=== PATIENT | female | born 1985 | race Caucasian/White ===

== ENCOUNTER 2018-07-12 15:46 | Inpatient (IN) | payer MEDICAID ==
[~2018-07-12] VITALS: Ht 160 cm; Wt 66.7 kg
[~2018-07-12 15:46] MED LIST: ARIP10TA8 PO; BUSP10TA23 PO; DSS100 PO; LIDO700A15 TD; MACR100 PO; MIRT30 PO; OMEP20 PO; TRAZ-219 PO
[2018-07-12] MEDS ORDERED: PROMETHAZINE HCL 25 MG TABLET PO ONE (16:15)
[2018-07-12 16:19] LABS: BASOPHILS % (AUTO) 0.6 % (0.0-2.0); EOSINOPHILS % (AUTO) 1.9 % (1.0-6.0); HEMATOCRIT 40.5 % (36-46); HEMOGLOBIN 14.1 g/dL (12.0-16.0); LYMPHOCYTES # (AUTO) 2.1 K/uL (1.0-4.8); LYMPHOCYTES % (AUTO) 28.2 % (22.0-44.0); MEAN CORPUSCULAR HEMOGLOBIN 30.8 pg (26.0-34.0); MEAN CORPUSCULAR HGB CONC 34.9 G/dL (31.0-37.0); MEAN CORPUSCULAR VOLUME 88 fL (80-100); MONOCYTES # (AUTO) 0.5 K/uL (0.1-1.0); MONOCYTES % (AUTO) 6.5 % (2.0-9.0); NEUTROPHILS # (AUTO) 4.7 K/uL (1.8-7.7); NEUTROPHILS % (AUTO) 62.8 % (40.0-70.0); PLATELET COUNT (AUTO) 293 K/uL (150-450); RED BLOOD CELL COUNT(AUTO) 4.59 MIL/uL (4.00-5.20)
[2018-07-12 16:23] LABS: AMPHET/METH SCREEN,URINE POSITIVE (NEGATIVE); BARBITURATE SCREEN, URINE NEGATIVE (NEGATIVE); BENZODIAZEPINES SCREEN,URINE POSITIVE (NEGATIVE); CANNABINOID SCREEN,URINE POSITIVE (NEGATIVE); COCAINE SCREEN,URINE NEGATIVE (NEGATIVE); METHADONE SCREEN, URINE NEGATIVE (NEGATIVE); OPIATE SCREEN,URINE NEGATIVE (NEGATIVE); PHENCYCLIDINE SCREEN,URINE NEGATIVE (NEGATIVE)
[2018-07-12 16:28] LABS: ANION GAP 7 mmol/L (8-16); CALCIUM, TOTAL 8.9 mg/dL (8.8-10.5); CARBON DIOXIDE 30 mmol/L (22-29); CHLORIDE 105 mmol/L (98-107); CREATININE 0.75 mg/dL (0.60-1.30); GLOMERULAR FILTR. RATE CALC > 60 mL/min (>60); GLUCOSE,RANDOM 132 mg/dL (70-110); POTASSIUM 4.1 mmol/L (3.5-5.1); SODIUM SERUM 142 mmol/L (136-145); UREA NITROGEN, BLOOD 12 mg/dL (7-18)
[2018-07-12 16:34] LABS: ALANINE AMINOTRANSFERASE 18 U/L (12-78); ALBUMIN 3.9 g/dL (3.4-5.0); ALKALINE PHOSPHATASE 64 U/L (46-116); ASPARTATE AMINOTRANSFERASE 13 U/L (15-37); BILIRUBIN,TOTAL 0.5 mg/dL (0.1-1.0); TOTAL PROTEIN, SERUM 6.9 g/dL (6.4-8.2)
[2018-07-12] MEDS ORDERED: DiphenhydrAMINE HCL 50 MG CAPSULE PO ONE (17:30)
[2018-07-12] MEDS ORDERED: LORazepam 2 MG TABLET PO ONE (17:30)
[2018-07-12] MEDS ORDERED: HALOPERIDOL 5 MG TABLET PO ONE (17:30)
[2018-07-12] MEDS ORDERED: ACETAMINOPHEN 325 MG TABLET PO PRN ×2 (18:00→21:30)
[2018-07-12] MEDS ORDERED: IBUPROFEN 400 MG TABLET PO PRN (18:00)
[2018-07-12 19:15] LABS: APPEARANCE,URINE TURBID (CLEAR); BILIRUBIN,URINE NEGATIVE (NEGATIVE); GLUCOSE, URINE (UA) NEGATIVE (NEGATIVE); KETONES,URINE TRACE mg/dL (NEGATIVE); LEUKOCYTE ESTERASE ,URINE NEGATIVE (NEGATIVE); NITRATE,URINE NEGATIVE (NEGATIVE); OCCULT BLOOD,URINE NEGATIVE (NEGATIVE); PROTEIN,URINE TRACE (NEGATIVE)
[2018-07-12 19:30] VITALS: BP 107/49
[2018-07-12] MEDS: ZOLPIDEM TARTRATE 10 MG TABLET PO PRN (20:35)
[2018-07-12] MEDS ORDERED: ONDANSETRON HCL 4 MG TABLET PO PRN (21:30)
[2018-07-12] MEDS ORDERED: GuaiFENesin/D-METHORPHAN [SUGAR-FREE] 200-20MG/10 ML SYRUP UDCUP PO PRN (21:30)
[2018-07-12] MEDS ORDERED: CloNIDine HCL 0.1 MG TABLET PO PRN (21:30)
[2018-07-12] MEDS ORDERED: DOCUSATE SODIUM 100 MG CAPSULE PO PRN (21:30)
[2018-07-12] MEDS ORDERED: MAGNESIUM HYDROXIDE SUSPENSION 30 ML UDCUP PO PRN (21:30)
[2018-07-12] MEDS ORDERED: ALBUTEROL SULFATE HFA 90 MCG/PUFF 8 GM INHALER IH PRN (21:30)
[2018-07-12] MEDS ORDERED: PETROLATUM,WHITE 71 GM JELLY TP PRN (21:30)
[2018-07-12] MEDS ORDERED: MAG HYDROX/AL HYDROX/SIMETH ES 30 ML SUSPENSION UDCUP PO PRN (21:30)
[2018-07-12] MEDS ORDERED: LOPERAMIDE HCL 2 MG CAPSULE PO PRN (21:30)
[2018-07-13 06:54] LABS: BASOPHILS % (AUTO) 1.3 % (0.0-2.0); EOSINOPHILS % (AUTO) 3.2 % (1.0-6.0); HEMATOCRIT 38.6 % (36-46); HEMOGLOBIN 13.7 g/dL (12.0-16.0); LYMPHOCYTES # (AUTO) 2.2 K/uL (1.0-4.8); LYMPHOCYTES % (AUTO) 42.8 % (22.0-44.0); MEAN CORPUSCULAR HEMOGLOBIN 31.5 pg (26.0-34.0); MEAN CORPUSCULAR HGB CONC 35.5 G/dL (31.0-37.0); MEAN CORPUSCULAR VOLUME 89 fL (80-100); MONOCYTES # (AUTO) 0.4 K/uL (0.1-1.0); MONOCYTES % (AUTO) 8.7 % (2.0-9.0); NEUTROPHILS # (AUTO) 2.3 K/uL (1.8-7.7); PLATELET COUNT (AUTO) 226 K/uL (150-450); RED BLOOD CELL COUNT(AUTO) 4.35 MIL/uL (4.00-5.20); RED CELL DISTRIBUTION WIDTH 12.8 % (11.5-14.5)
[2018-07-13 07:15] LABS: HEMOGLOBIN A1C 4.8 % (4.5-6.2)
[2018-07-13 07:28] LABS: ALANINE AMINOTRANSFERASE 17 U/L (12-78); ALBUMIN 3.4 g/dL (3.4-5.0); ALKALINE PHOSPHATASE 47 U/L (46-116); ANION GAP 2 mmol/L (8-16); ASPARTATE AMINOTRANSFERASE 12 U/L (15-37); BILIRUBIN,TOTAL 0.5 mg/dL (0.1-1.0); CARBON DIOXIDE 33 mmol/L (22-29); CHLORIDE 105 mmol/L (98-107); CHOL/HDL RATIO 1.9 (3.9-5.7); CHOLESTEROL 103 mg/dL (131-200); CREATININE 0.87 mg/dL (0.60-1.30); GLOMERULAR FILTR. RATE CALC > 60 mL/min (>60); GLUCOSE,RANDOM 88 mg/dL (70-110); HDL CHOLESTEROL 53 mg/dL (40-60); LDL CHOL (CALC.) 46 mg/dL (0-130); POTASSIUM 4.1 mmol/L (3.5-5.1); SODIUM SERUM 140 mmol/L (136-145); THYROID STIMULATING HORMONE 1.36 uIU/mL (0.36-3.74); TOTAL PROTEIN, SERUM 5.9 g/dL (6.4-8.2); TRIGLYCERIDES 20 mg/dL (15-150); UREA NITROGEN, BLOOD 17 mg/dL (7-18)
[2018-07-13] MEDS: BACITRACIN 28.4 GM OINTMENT TP SCH ×2 (09:00→17:02)
[2018-07-13 09:50] VITALS: BP 110/61
[2018-07-13] MEDS: BusPIRone HCL 10 MG TABLET PO SCH ×2 (17:03→20:54)
[2018-07-13] MEDS: ARIPiprazole 10 MG TABLET PO SCH (17:03)
[2018-07-13 19:05] VITALS: BP 106/60
[2018-07-13] MEDS: MIRTAZAPINE 30 MG TABLET PO SCH (20:54)
[2018-07-13] MEDS: TraZODone HCL 50 MG TABLET PO SCH (20:54)
[2018-07-14] MEDS: BusPIRone HCL 10 MG TABLET PO SCH ×3 (10:18→20:49)
[2018-07-14] MEDS: BACITRACIN 28.4 GM OINTMENT TP SCH ×2 (10:20→17:24)
[2018-07-14] MEDS: ARIPiprazole 10 MG TABLET PO SCH ×2 (10:20→17:24)
[2018-07-14] MEDS: NICOTINE 14 MG/24 HOUR PATCH TD PRN (10:26)
[2018-07-14 10:27] VITALS: BP 110/55
[2018-07-14] MEDS: IBUPROFEN 400 MG TABLET PO PRN (10:29)
[2018-07-14 17:17] VITALS: BP 127/80
[2018-07-14] MEDS: MIRTAZAPINE 30 MG TABLET PO SCH (20:49)
[2018-07-14] MEDS: TraZODone HCL 50 MG TABLET PO SCH (20:49)
[2018-07-15] MEDS: BusPIRone HCL 10 MG TABLET PO SCH ×3 (09:23→20:45)
[2018-07-15] MEDS: ARIPiprazole 10 MG TABLET PO SCH ×2 (09:23→16:23)
[2018-07-15] MEDS: NICOTINE 14 MG/24 HOUR PATCH TD PRN (09:24)
[2018-07-15] MEDS: BACITRACIN 28.4 GM OINTMENT TP SCH ×2 (09:24→16:23)
[2018-07-15 10:29] VITALS: BP 117/69
[2018-07-15] MEDS: LORazepam 2 MG TABLET PO PRN (16:23)
[2018-07-15 17:11] VITALS: BP 118/68
[2018-07-15] MEDS: MIRTAZAPINE 30 MG TABLET PO SCH (20:44)
[2018-07-15] MEDS: ZOLPIDEM TARTRATE 10 MG TABLET PO PRN (20:44)
[2018-07-15] MEDS: TraZODone HCL 50 MG TABLET PO SCH (20:44)
[2018-07-16] MEDS: ARIPiprazole 10 MG TABLET PO SCH ×2 (07:50→16:13)
[2018-07-16] MEDS: BusPIRone HCL 10 MG TABLET PO SCH ×3 (07:51→21:03)
[2018-07-16] MEDS: NICOTINE 14 MG/24 HOUR PATCH TD PRN (07:51)
[2018-07-16] MEDS: BACITRACIN 28.4 GM OINTMENT TP SCH ×2 (07:51→16:14)
[2018-07-16] MEDS: IBUPROFEN 400 MG TABLET PO PRN (07:53)
[2018-07-16] MEDS: LORazepam 2 MG TABLET PO PRN ×2 (07:53→18:30)
[2018-07-16 07:55] VITALS: BP 124/66
[2018-07-16 08:35] VITALS: BP 124/66
[2018-07-16 08:55] VITALS: BP 118/68
[2018-07-16] MEDS: FLUoxetine HCL 20 MG CAPSULE PO SCH (12:52)
[2018-07-16] MEDS: MIRTAZAPINE 30 MG TABLET PO SCH (21:03)
[2018-07-16] MEDS: TraZODone HCL 50 MG TABLET PO SCH (21:03)
[2018-07-16 21:24] VITALS: BP 107/68
[2018-07-17 09:05] VITALS: BP 132/82
[2018-07-17] MEDS: HALOPERIDOL 5 MG TABLET PO PRN (09:10)
[2018-07-17] MEDS: IBUPROFEN 400 MG TABLET PO PRN ×2 (09:10→20:33)
[2018-07-17] MEDS: BusPIRone HCL 10 MG TABLET PO SCH ×3 (09:11→20:08)
[2018-07-17] MEDS: FLUoxetine HCL 20 MG CAPSULE PO SCH (09:11)
[2018-07-17] MEDS: LORazepam 2 MG TABLET PO PRN ×2 (09:11→20:34)
[2018-07-17] MEDS: ARIPiprazole 10 MG TABLET PO SCH ×2 (09:11→16:45)
[2018-07-17] MEDS: BACITRACIN 28.4 GM OINTMENT TP SCH ×2 (09:12→16:45)
[2018-07-17] MEDS: NICOTINE 14 MG/24 HOUR PATCH TD PRN (10:53)
[2018-07-17 16:54] VITALS: BP 120/81
[2018-07-17] MEDS: TraZODone HCL 50 MG TABLET PO SCH (20:09)
[2018-07-17] MEDS: MIRTAZAPINE 30 MG TABLET PO SCH (20:09)
[2018-07-17 20:34] VITALS: BP 118/78
[2018-07-18] VITALS (7 sets, daily range): BP systolic 113–127; BP diastolic 65–80
[2018-07-18] MEDS: FLUoxetine HCL 20 MG CAPSULE PO SCH (08:26)
[2018-07-18] MEDS: HALOPERIDOL 5 MG TABLET PO PRN ×2 (08:26→20:16)
[2018-07-18] MEDS: IBUPROFEN 400 MG TABLET PO PRN ×2 (08:26→16:28)
[2018-07-18] MEDS: LORazepam 2 MG TABLET PO PRN ×3 (08:26→20:16)
[2018-07-18] MEDS: ARIPiprazole 10 MG TABLET PO SCH ×2 (08:26→16:09)
[2018-07-18] MEDS: BusPIRone HCL 10 MG TABLET PO SCH ×3 (08:26→20:16)
[2018-07-18] MEDS: BACITRACIN 28.4 GM OINTMENT TP SCH ×2 (10:28→16:11)
[2018-07-18] MEDS ORDERED: BENZOCAINE 10% 7 GM GEL TP PRN (19:15)
[2018-07-18] MEDS: TraZODone HCL 50 MG TABLET PO SCH (20:16)
[2018-07-18] MEDS: MIRTAZAPINE 30 MG TABLET PO SCH (20:16)
[2018-07-18] MEDS: ZOLPIDEM TARTRATE 10 MG TABLET PO PRN (21:44)
[2018-07-19] MEDS: FLUoxetine HCL 20 MG CAPSULE PO SCH (09:27)
[2018-07-19] MEDS: BusPIRone HCL 10 MG TABLET PO SCH (09:27)
[2018-07-19] MEDS: BACITRACIN 28.4 GM OINTMENT TP SCH ×2 (09:27→16:44)
[2018-07-19] MEDS: ARIPiprazole 10 MG TABLET PO SCH ×2 (09:27→16:16)
[2018-07-19 09:30] VITALS: BP 114/68
[2018-07-19] MEDS: HALOPERIDOL 5 MG TABLET PO PRN (09:30)
[2018-07-19] MEDS: IBUPROFEN 400 MG TABLET PO PRN ×2 (09:30→16:21)
[2018-07-19] MEDS: LORazepam 2 MG TABLET PO PRN ×2 (09:30→16:21)
[2018-07-19] MEDS: BusPIRone HCL 5 MG TABLET PO SCH (16:17)
[2018-07-19 16:20] VITALS: BP 112/71
[2018-07-19] MEDS: TraZODone HCL 50 MG TABLET PO SCH (20:18)
[2018-07-19] MEDS: ZOLPIDEM TARTRATE 10 MG TABLET PO PRN (20:19)
[2018-07-19] MEDS ORDERED: MIRTAZAPINE 15 MG TABLET PO SCH (21:00)
[2018-07-20] MEDS: BusPIRone HCL 5 MG TABLET PO SCH ×2 (08:15→12:20)
[2018-07-20] MEDS: HALOPERIDOL 5 MG TABLET PO PRN (08:15)
[2018-07-20] MEDS: ARIPiprazole 10 MG TABLET PO SCH (08:15)
[2018-07-20] MEDS: LORazepam 2 MG TABLET PO PRN (08:15)
[2018-07-20] MEDS: NICOTINE 14 MG/24 HOUR PATCH TD PRN (08:16)
[2018-07-20] MEDS: IBUPROFEN 400 MG TABLET PO PRN (08:16)
[2018-07-20 09:55] VITALS: BP 112/69
[2018-07-20] MEDS ORDERED: MIRT15 PO (13:19)
== END 2018-07-20 14:00 | disposition home or self-care (01) | DRG 740 ==
LOC: EMS 15:48 → 3EI 19:28
PROVIDERS: ADMIT Psychiatry & Neurology Child & Adolescent Psychiatry; ATTEND Psychiatry & Neurology Child & Adolescent Psychiatry
PROC: 0XQHXZZ Repair Left Wrist Region, External Approach (ICD-10-PCS; principal; 2018-07-12)
DX: F33.2 Major depressive disorder, recurrent severe without psychotic features (principal); F50.2 Bulimia nervosa; R45.851 Suicidal ideations; F10.10 Alcohol abuse, uncomplicated; F41.9 Anxiety disorder, unspecified; K21.9 Gastro-esophageal reflux disease without esophagitis; R45.87 Impulsiveness; F90.9 Attention-deficit hyperactivity disorder, unspecified type; F15.10 Other stimulant abuse, uncomplicated; F12.10 Cannabis abuse, uncomplicated; F17.200 Nicotine dependence, unspecified, uncomplicated; S61.512A Laceration without foreign body of left wrist, initial encounter; X58.XXXA Exposure to other specified factors, initial encounter; Z91.5 Personal history of self-harm; Z90.710 Acquired absence of both cervix and uterus; Z71.6 Tobacco abuse counseling; Z71.41 Alcohol abuse counseling and surveillance of alcoholic; Y92.89 Other specified places as the place of occurrence of the external cause; Y93.89 Activity, other specified; Y99.8 Other external cause status
CPT/HCPCS: 12004; 83036; 84443; G0480